=== PATIENT | female | born 1980 | race Caucasian/White ===

== ENCOUNTER 2017-09-12 10:54 | Day surgery (SDC) | payer OTHER ==
[~2017-09-12] VITALS: Ht 157.5 cm; Wt 53.0 kg
[~2017-09-12 10:54] MED LIST: ASPIRIN81 M2 PO; ENDOCET 5-3251 EACH PO; IBUPROFEN800 MG PO; IMITREX50 MG PO; MOTRIN800 MG PO; PRENATAL TABLE1 EAC3 PO
[2017-09-12 11:37] VITALS: BP 111/64
[2017-09-12] MEDS ORDERED: IBUPROFEN800 MG PO (13:55)
[2017-09-12] MEDS ORDERED: PERCOCET 5/31 TABLET PO (13:55)
[2017-09-12 14:55] VITALS: BP 98/51
[2017-09-12 16:57] VITALS: BP 105/54
[2017-09-12 17:30] VITALS: BP 110/56
== END 2017-09-12 17:45 | disposition home or self-care (01) ==
LOC: SDC 10:54
PROC: 0UT74ZZ Resection of Bilateral Fallopian Tubes, Percutaneous Endoscopic Approach (ICD-10-PCS; principal; 2017-09-12)
DX: Z30.2 Encounter for sterilization (principal); G43.909 Migraine, unspecified, not intractable, without status migrainosus; Z88.2 Allergy status to sulfonamides
CPT/HCPCS: 88302; J1100; J1885; J2250; J2405; J2710; J2765; J3010